=== PATIENT | female | born 1995 | race African-American/Black ===

== ENCOUNTER 2020-07-28 14:45 | Emergency (ER) | payer SELFPAY ==
[~2020-07-28] VITALS: Ht 172.7 cm; Wt 95.2 kg
[2020-07-28] MEDS ORDERED: AMOX500C PO (15:46)
[2020-07-28 16:09] VITALS: BP 146/83
== END 2020-07-28 16:28 | disposition home or self-care (01) ==
LOC: M ED 14:45
DX: J02.0 Streptococcal pharyngitis (principal); Z88.7 Allergy status to serum and vaccine